=== PATIENT | female | born 1990 | race Caucasian/White ===

== ENCOUNTER 2023-09-16 09:59 | Outpatient (CLI) | payer OTHER ==
--- NOTE | 2023-09-16 10:45 | Sleep Patient Instructions ---
Sleep Center Visit Summary - Patient Visit Information Reason for Visit: Initial consult for evaluation of sleep disordered breathing and other sleep issues. - Patient Instructions Instructions Attached: Sleep Study Additional Instructions: You will be completing a sleep study, either an in-lab polysomnography (PSG) or home sleep study (HST). You will follow-up in the sleep care office after the sleep study is completed to hear the results and talk about therapy, if needed. You will be called by our office staff to schedule this appointment, but you may contact us with any questions. - Clinic Information Contact: [facility] [address] [place] [address] [email or web address] T: [phone]
--- NOTE | 2023-09-16 10:48 | SLEEP CARE CONSULTATION ---
Information from patient questionnaire entered by Mark Tabor. I have reviewed and concur with the information entered by Mark Tabor. This document represents the service I personally performed and the decisions made by me, Dia Love ARNP. History of Present Illness Service Date and Time: 09/16/2023 0959 Reason for Visit: New patient Chief Complaint: reports: Unrefreshed sleep, Snoring, Excessive daytime sleepiness, Observed pauses in breathing Date of Onset: 5+YRS Usual bedtime: 2300 Time it takes to fall asleep: 30MINS-2HRS Snores at night: Yes Observed to quit breathing while asleep: Yes Sleeps alone due to snoring: No Number of times waking at night: 1-2 Reasons for waking at night: reports: Bathroom, Other ( BABY) Toss, Turn, or Twitch while sleeping: Yes Recalls having dreams: Yes Usually gets out of bed at: 0356-4913 Feels refreshed in the morning: No Morning headache: No Sleepy or fatigued during the day: Yes Ever fallen asleep while driving: No Takes day naps: Yes Dreams during day naps: Yes Prior sleep studies: Yes Additional HPI information: I had the pleasure of seeing DARIAN SEARS today regarding the possibility of her having a sleep disorder. Her current complaints are unrefreshed sleep, excessive daytime sleepiness, snoring and observed pauses in breathing. She was in the hospital after delivering her last child about 2 months ago and her oxygen would drop when sleeping. She was advised to get a sleep study to see if she has sleep apnea. Her has told her that she snores "heavily" and has seen her have a pause in breathing in her sleep. Her mother had sleep apnea but has since . The patient tells me that she normally goes to bed around 11 pm, and it takes her approximately 30 minutes to 2 hours to fall asleep. She has been told that she snores loudly and irregularly at night. She has been observed to stop breathing in her sleep. Her bed partner can still sleep in the same bed. She can recall waking up on the average of 1-2 times during the night. Most of the time she wakes up because of or bathroom. She has occasionally awakened for her own snoring. There is a lot of tossing and turning in her sleep. Generally she can recall having dreams. She usually wakes up at 8-10 AM and does not feel refreshed. She usually does have a morning headache about 1 time a month. During the day she complains of feeling sleepy and fatigued. She has never fallen asleep while driving nor has any accident due to sleepiness. She usually naps 1-2 days a week for about 1-2 hours during the day. If she naps, upon falling asleep during the day she admits to having vivid dreams. She denies having impaired concentration during the day. There is somniloquy (sleep talking) but no somnambulism (sleep walking). - Parasomnia Symptoms Ever been unable to move upon waking from sleep: No Walks in sleep: No Talks in sleep: Yes Ever acted out dreams in sleep: Yes Ever felt weak in the knees when startled or emotional: No Bothered by creepy, crawly, restless sensations in legs: No Problems with memory or concentration: Yes (both) Subjective Initial [place] Sleepiness Scale score: 7 (09/16/23) Past Medical History Past Medical History: reports: Depression, Other (2 C-sections) Social History The patient's occupation is a [employer]. Patient is and lives in [place]. Have you smoked in the past 12 months: Yes Cigarettes per day (20/pack): 0 (VAPE) Years of smokin Smoking Pack Years: 0 Alcohol use: Yes Alcohol amount and frequency: 1 RARELY Caffeine use: Yes Caffeine amount and frequency: 1-2 ONE A DAY IF THAT Family History Family history of sleep disordered breathing: Yes Family Hx Sleep Apnea: Mother: Snoring, Sleep apnea - Treated Allergies and Home Medications Known drug allergies: Yes ( LISTED) Drug allergies reviewed: Yes Home medication list reviewed: Yes (as listed) Allergy and home medication list: Allergies amoxicillin Allergy (Verified 09/16/23 10:15) clavulanic acid [From Augmentin] Allergy (Verified 09/16/23 10:15) Penicillins Allergy (Verified 09/16/23 10:15) Home Medications Sertraline [Zoloft] See Rx Instructions .ROUTE .COMPLEX 09/16/23 [History] Review of Systems Weight gain over past 5 years: 40-50 Weight loss over past 5 years: 40-50 Cardiovascular: denies: high blood pressure Neurological: denies: head trauma Psychiatric: reports: depression Ear/Nose/Throat: reports: wisdom teeth removed. denies: injury to nose, tonsillectomy Physical Exam Vital signs obtained and entered by: MARK Jones MA Blood Pressure: 141/96 (RIGHT ARM) Cuff size: long Heart Rate: 91 O2 Saturation: 97 Height: 5 ft 2.5 in Weight: 229 lb 6.4 oz Body Mass Index: 41.3 BMI Classification: Morbidly Obese Neck circumference: 15.75 Nostrils: patent to airflow Mouth and throat: narrow oropharynx Soft palate: long Hard palate: normal Uvula: normal Uvula visualization: 25% Mallampati Class III Tongue: enlarged in size with teeth sandhu on lateral edges Tonsils: small Neck: normal w/o lymphadenopathy or thyromegaly Heart: regular rate and rhythm Lungs: clear bilaterally Impression and Plan 1. Suspected Obstructive Sleep Apnea-Hypopnea Syndrome, as suggested by a history of loud and irregular snoring, observed cessation of breath while asleep, unrefreshed sleep, cognitive impairment, and excessive daytime sleepiness. Narrow oropharynx and obesity are common predisposing factors for obstructive sleep apnea-hypopnea syndrome. I recommend proceeding to polysomnography to confirm the diagnosis and to assess severity. If the patient has significant sleep disordered breathing, a manual CPAP titration study will also be performed to find the optimal treatment pressure. I informed the patient of what the sleep studies involve and after some discussion, obtained agreement to proceed. The pathophysiology of obstructive sleep apnea-hypopnea syndrome was discussed with the patient and health risks of cardiovascular and cerebrovascular disease if not treated. Risks of drowsy driving discussed in detail and patient advised to avoid long distance driving and to lung puller at the first sign of drowsiness. Patient agreed to plan. * Schedule polysomnography * Avoid long distance driving or driving when feeling sleepy. * Avoid alcohol, sedative and muscle relaxant around bedtime. * Attempt to lose weight. * Review instructions provided by trained office staff on how to prepare for the sleep study. * Return for follow-up after sleep study completed. Counseling Topics: Weight loss health impact Plan: PSG and followup Visit Type: In Office Time Spent with Patient (minutes): 30 Provider Statement: I spent 100% of the Face to Face Visit with the patient with greater than 50% spent counseling the patient and coordination of care.
[2023-09-16 10:56] VITALS: BP 141/96; O2SAT 97
== END 2023-09-16 10:00 | disposition home or self-care (01) ==
LOC: SC 09:59
PROVIDERS: ATTEND Nurse Practitioner Family
DX: G47.8 Other sleep disorders (principal); R06.83 Snoring; G47.10 Hypersomnia, unspecified; R06.81 Apnea, not elsewhere classified; F17.290 Nicotine dependence, other tobacco product, uncomplicated; E66.01 Morbid (severe) obesity due to excess calories; Z68.41 Body mass index [BMI] 40.0-44.9, adult; R41.89 Other symptoms and signs involving cognitive functions and awareness
CPT/HCPCS: 99203; 99212

== ENCOUNTER 2023-10-28 19:20 | Outpatient (CLI) | payer OTHER | END 2023-10-28 19:21 | disposition home or self-care (01) | LOC: SC 19:20 | PROVIDERS: ATTEND Nurse Practitioner Family | DX: G47.33 Obstructive sleep apnea (adult) (pediatric) (principal); E66.9 Obesity, unspecified; Z68.41 Body mass index [BMI] 40.0-44.9, adult | CPT/HCPCS: 95810 ==